=== PATIENT | male | born 1995 | race Caucasian/White ===

== ENCOUNTER 2017-03-29 10:13 | Emergency (ER) | payer SELFPAY ==
[~2017-03-29] VITALS: Ht 177.8 cm; Wt 63.5 kg
--- NOTE | 2017-03-29 10:25 | NUR ---
PT.WAS SEEN BY ,WOUND CARE AND SUTURES WAS DONE BY ,PT.TOLERATED WELL,NO S/S OF DISTRESS.
[2017-03-29] MEDS ORDERED: LIDOCAINE HCL 2% 20 ML VIAL TP ONE (10:45)
--- NOTE | 2017-03-29 11:08 | NUR ---
WOUND CARE WAS DONE,FINGER ALLUMINUM SPLINT APPL.WITH GOOD+ CIRCULATION. 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
[2017-03-29 11:11] VITALS: BP 126/61
== END 2017-03-29 11:13 | disposition home or self-care (01) ==
LOC: ER 10:13
DX: S61.212A Laceration without foreign body of right middle finger without damage to nail, initial encounter (principal); W31.89XA Contact with other specified machinery, initial encounter; Y93.89 Activity, other specified; Y92.69 Other specified industrial and construction area as the place of occurrence of the external cause; Y99.0 Civilian activity done for income or pay
CPT/HCPCS: 12001; 99283; A4663

== ENCOUNTER 2017-04-02 18:04 | Emergency (ER) | payer SELFPAY ==
--- NOTE | 2017-04-02 18:32 | NUR ---
[facility], CALLED 3 TIMES AND NO ANSWER
== END 2017-04-02 18:34 | disposition left against medical advice (07) ==
LOC: ER 18:04
DX: Z53.21 Procedure and treatment not carried out due to patient leaving prior to being seen by health care provider (principal)